=== PATIENT | male | born 1950 | race Caucasian/White ===

== ENCOUNTER 2018-03-02 09:34 | Outpatient (CLI) | payer MEDICARE ==
--- NOTE | 2018-03-02 11:04 | ULT ---
ABDOMINAL AORTIC ULTRASOUND: HISTORY: Previous smoker. Screening for abdominal aortic aneurysm. FINDINGS: No evidence for abdominal aortic aneurysm. There are some minimal aortic plaques noted, evidence for atherosclerotic disease. IMPRESSION: 1. No evidence for abdominal aortic aneurysm. 2. Evidence for arteriovascular atherosclerotic changes of the abdominal aorta. POS: C
== END 2018-03-02 09:35 | disposition home or self-care (01) ==
LOC: BICULT 09:34
PROVIDERS: ATTEND Family Medicine
DX: Z13.6 Encounter for screening for cardiovascular disorders (principal); Z00.00 Encounter for general adult medical examination without abnormal findings; I70.0 Atherosclerosis of aorta
CPT/HCPCS: 76775